=== PATIENT | female | born 1955 | race Caucasian/White ===

== ENCOUNTER → 2017-01-07 | Outpatient (CLI) | payer OTHER ==
[~2017-01-07] MED LIST: HYDROCHLOROTH12.5 MG PO; OMEPRAZOLE20 M1 PO; PRAVASTATIN SOD20 MG PO
--- NOTE | ~2017-01-07 | MR165 ---
[facility] A Service of [facility] & [facility] RADIOLOGY TEXT RESULTS PATIENT: REKHA CHAVIRA LOCATION: [facility] : 59 UNIT #: [id number] AGE: [address]: Roxann Bowens MD SEX: F ORDER DR: [id number] [facility] [address] [place], [place] [address] [id number] O MR#: [id number] #: [id number] NAME: REKHA CHAVIRA : 1955 SEX: F STUDY DATE/TIME: 01/07/2017 10:45 UNIT: [facility] ROOM: STUDY DESCRIPTION: MR Shoulder Wo Contrast Rt Attending Physician: Roxann Bowens M.D. Referring Physician: Roxann Bowens M.D. Ordering Physician: Roxann Bowens M.D. Primary Care Physician: Roxann Bowens M.D. MRI CENTER REPORT This report is preliminary unless electronic signature is present. EXAM MRI of the right shoulder HISTORY 61-year-old female complains of right shoulder pain for approximately 6 months, possible repetitive motion injury. FINDINGS Multiplanar, multiecho imaging was performed of the right shoulder utilizing a high-field magnet and dedicated protocol. Mild AC joint arthropathy with inferiorly directed distal clavicular and acromial osteophytes with some mass effect on the rotator cuff, and this may contribute to impingement. Minimal periarticular edema could reflect some active inflammation. Marrow signal within the proximal humerus and glenoid appears normal. Joint fluid within normal limits. There is mild supraspinatus and infraspinatus tendinopathy. Within the critical zone of the infraspinatus tendon, there is approximately 1-cm focus of high-grade tendinopathy and/or developing bursal-sided partial tear. No full-thickness tear is identified. Teres minor and subscapularis tendons appear normal. No muscle atrophy. A small amount of edema is seen along the myotendinous junction of the infraspinatus and may imply active tendinopathy. Superior labrum, biceps anchor and long tendon of the biceps appears intact. Anterior and posterior labrum appears normal. Articular cartilage unremarkable. The deltoid and extraarticular soft tissues appear normal. There is also a moderate amount of subacromial-subdeltoid bursitis. IMPRESSION 1. Mild supraspinatus and infraspinatus tendinopathy, with the exception of a 1-cm focus of high-grade tendinopathy versus partial STS. [facility] A Service of [facility] RADIOLOGY TEXT RESULTS PATIENT: REKHA CHAVIRA LOCATION: [facility] : 59 UNIT #: [id number] AGE: [address]: Roxann Bowens MD SEX: F ORDER DR: thickness bursal-sided tear within the critical zone of the infraspinatus tendon, as detailed above. 2. Subacromial-subdeltoid bursitis. 3. AC joint arthropathy with inferiorly directed clavicular and acromial osteophytes which does produce mass effect on the rotator cuff musculature. In combination with a thickened coracoacromial ligament, these both could contribute to narrowing of the subacromial outlet and may be contributing factors to the patient's cuff pathology. Dictated by... French Tran M.D. THIS IS AN ELECTRONICALLY VERIFIED REPORT French Tran M.D. at 01/09/2017 7:21 AM NANCY/susan TD: 01/07/2017 20:06 JOB #: [id number] MRI CENTER REPORT COPY
== END | disposition home or self-care (01) ==
LOC: CMRI 09:59
DX: M25.511 Pain in right shoulder (principal); M19.011 Primary osteoarthritis, right shoulder; M75.81 Other shoulder lesions, right shoulder; M75.51 Bursitis of right shoulder
CPT/HCPCS: 73221